=== PATIENT | male | born 2000 | race African-American/Black ===

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

== ENCOUNTER 2025-02-23 04:13 | Emergency (ER) | payer SELFPAY ==
[2025-02-23 04:16] VITALS: BP 172/89; PULSE 102; PULSE 95; RESP 22; TEMP 36.8; O2SAT 94; O2SAT 95; BMI 44.3
[2025-02-23 04:21] VITALS: O2SAT 94
[2025-02-23] MEDS: Albuterol 2.5 MG/3 ML VIAL.NEB. INHALATION (04:54)
[2025-02-23] MEDS: Albuterol Sulfate 8 gm Inhaler (60 puffs) 2 PUFF INHALATION (04:56)
[2025-02-23 04:57] VITALS: PULSE 100; RESP 18
--- OUTSIDE RECORDS SUMMARY | 2025-02-23 05:02 | XMS RPT_ITS | CCD ---
Author Organization [employer] [facility] Results Test Name Value Interpretation Reference Range Facil ity TSH with reflex T4FRon 12-15 TSH with reflex T4FR 1.927 uIU/mL Normal 0.350-5.500 [facility] Comment on above: Order Comment: With differential. Is this specimen being sent to an external lab?->No Performed By: #### T SHR #### [place] [address] Basic Metabolic Panelon 11-24 Calcium [Mass/Vol] 9.8 mg/dL Normal 7.6-11.0 [facility] Comment on above: Order Comment: With differential. Is this specimen being sent to an external lab?->No Performed By: #### B MP #### [address] [address] Chloride [Moles/Vol] 102 mmol/L Normal 96-108 [facility] Comment on above: Order Comment: With differential. Is this specimen being sent to an external lab?->No Performed By: #### B MP #### [address] [address] CO2 [Moles/Vol] 27.1 mmol/L Normal 22.0-29.0 [facility] Comment on above: Order Comment: With differential. Is this specimen being sent to an external lab?->No Performed By: #### B MP #### [address] [address] Creatinine [Mass/Vol] 0.91 mg/dL Normal 0.70-1.20 [facility] Comment on above: Order Comment: With differential. Is this specimen being sent to an external lab?->No Result Comment: Premature 0.3-1.0 mg/dL Performed By: #### B MP #### [address] [address] Glucose [Mass/Vol] 94 mg/dL Normal 70-99 [facility] Comment on above: Order Comment: With differential. Is this specimen being sent to an external lab?->No Result Comment: Criteria for Diagnosis of Diabetes(Effective 01/28/11): Fasting specimen (no caloric intake for at least 8 hours). <100 mg/dl Normal 100-125 mg/dl Increased Risk for Diabetes >125 mg/dl Diagnostic for Diabetes Random Glucose (any time of day without regard to last meal). >=200 mg/dl plus Classic Symptoms of Diabetes Performed By: #### B MP #### [address] [address] Potassium [Moles/Vol] 4.5 mmol/L Normal 3.3-5.1 [facility] Comment on above: Order Comment: With differential. Is this specimen being sent to an external lab?->No Performed By: #### B MP #### [address] [address] Sodium [Moles/Vol] 138 mmol/L Normal 133-145 [facility] Comment on above: Order Comment: With differential. Is this specimen being sent to an external lab?->No Performed By: #### B MP #### [address] [address] Urea nitrogen [Mass/Vol] 11 mg/dL Normal 4-19 [facility] Comment on above: Order Comment: With differential. Is this specimen being sent to an external lab?->No Performed By: #### B MP #### [address] [address] Complete Blood Counton 12-14 Differential Complete Automated Normal [facility] Comment on above: Order Comment: With differential. Is this specimen being sent to an external lab?->No Performed By: #### C BC #### [address] [address] Basophils/100 WBC (Bld) 0.70 % Normal 0.00-1.00 [facility] Comment on above: Order Comment: With differential. Is this specimen being sent to an external lab?->No Performed By: #### C BC #### [address] [address] Eosinophils/100 WBC (Bld) 6.60 % High 0.00-3.00 [facility] Comment on above: Order Comment: With differential. Is this specimen being sent to an external lab?->No Performed By: #### C BC #### [address] [address] Erythrocyte distribution width (RBC) [Ratio] 12.8 % Normal 0.0-14.4 [facility] Comment on above: Order Comment: With differential. Is this specimen being sent to an external lab?->No Performed By: #### C BC #### [address] [address] Hematocrit (Bld) [Volume fraction] 47.7 % High 36.0-47.0 [facility] Comment on above: Order Comment: With differential. Is this specimen being sent to an external lab?->No Performed By: #### C BC #### [address] [address] Hemoglobin (Bld) [Mass/Vol] 16.2 g/dL High 13.0-15.2 [facility] Comment on above: Order Comment: With differential. Is this specimen being sent to an external lab?->No Performed By: #### C BC #### [address] [address] Immature granulocytes/100 WBC (Bld) 0.10 % Normal [facility] Comment on above: Order Comment: With differential. Is this specimen being sent to an external lab?->No Result Comment: Regine ture Granulocyte Percent includes promyelocytes, myelocytes, and metamyelocytes. IG% > 1.0 indicates a left shift is present. With automated differentials, bands are included in the neutrophil count and not in the Immature Granulocyte Percent. Performed By: #### C BC #### [address] [address] Lymphocytes/100 WBC (Bld) 44.5 % Normal 25.0-45.0 [facility] Comment on above: Order Comment: With differential. Is this specimen being sent to an external lab?->No Performed By: #### C BC #### [address] [address] MCH (RBC) [Entitic mass] 29.2 pg Normal 25.0-35.0 [facility] Comment on above: Order Comment: With differential. Is this specimen being sent to an external lab?->No Performed By: #### C BC #### [address] [address] MCHC (RBC) [Mass/Vol] 34.0 % Normal 31.0-37.0 [facility] Comment on above: Order Comment: With differential. Is this specimen being sent to an external lab?->No Performed By: #### C BC #### [address] [address] MCV (RBC) [Entitic vol] 86.1 fL Normal 78.0-96.0 [facility] Comment on above: Order Comment: With differential. Is this specimen being sent to an external lab?->No Performed By: #### C BC #### [address] [address] Monocytes/100 WBC (Bld) 10.30 % High 3.00-6.00 [facility] Comment on above: Order Comment: With differential. Is this specimen being sent to an external lab?->No Performed By: #### C BC #### [address] [address] Neutrophils (Bld) [#/Vol] 2.5 10*3/uL Normal 1.8-7.4 [facility] Comment on above: Order Comment: With differential. Is this specimen being sent to an external lab?->No Performed By: #### C BC #### [address] [address] Neutrophils/100 WBC (Bld) 37.8 % Normal 34.0-64.0 [facility] Comment on above: Order Comment: With differential. Is this specimen being sent to an external lab?->No Performed By: #### C BC #### [address] [address] Nucleated RBC/100 WBC (Bld) [Ratio] 0.0 % Normal -1.0-0.0 [facility] Comment on above: Order Comment: With differential. Is this specimen being sent to an external lab?->No Performed By: #### C BC #### [address] [address] Platelet mean volume (Bld) [Entitic vol] 10.7 fL Normal [facility] Comment on above: Order Comment: With differential. Is this specimen being sent to an external lab?->No Result Comment: MPV is platelet range and age dependent Performed By: #### C BC #### [address] [address] Platelets (Bld) [#/Vol] 309 10*3/uL Normal 150-450 [facility] Comment on above: Order Comment: With differential. Is this specimen being sent to an external lab?->No Performed By: #### C BC #### [facility] [address] [place], [place] [id number] RBC (Bld) [#/Vol] 5.54 10E12/L High 4.50-5.10 [facility] Comment on above: Order Comment: With differential. Is this specimen being sent to an external lab?->No Performed By: #### C BC #### [facility] [address] [place] [address] WBC (Bld) [#/Vol] 6.7 10*3/uL Normal 4.5-13.0 [facility] Comment on above: Order Comment: With differential. Is this specimen being sent to an external lab?->No Performed By: #### C BC #### [address] [id number] Progress Noteon 12-15-2019 Director Meetings Authentication Interface Message Text Patient ID: Crystal Farah is a 19 y.o. male. His chief complaint(s) include: Palpitations Assessment 1. Heart palpitations Plan Crystal was seen today for palpitations. Diagnoses and all orders for this visit: Heart palpitations - POCT Blood Glucose - Basic Metabolic Panel (Clinic Collect) - Complete Blood Count with Diff (Clinic Collect) - Venipuncture - TSH with Reflex to T4, Free (Clinic Collect); Future - AMB Referral To Cardiology; Future - TSH with Reflex to T4, Free (Clinic Collect) Will obtain laboratory studies to make sure no electrolyte abnormalities or thyroid disorder present. Will also have patient evaluated by cardiology to rule out any heart disease. Patient scheduled to enter the [employer] in couple of months so need to make sure that he has no heart issues. Return if symptoms worsen or fail to improve. Subjective He is accompanied by his mother. Palpitations This problem is new. The duration has been 5 days. The onset has been acute (happened 2 days in the last 5 days). The course is improving (1st episode worse than 2nd episode. 1st episode lasted about 10 minutes, 2nd one was 5 minutes. 1st episode was without activity, 2nd episode occurred while cleaning out the garage). The patient's symptoms have included no fatigue, no fever, no decreased appetite, no decreased fluid intake, no difficulty sleeping, no congestion, no rhinorrhea, no sore throat, no cough, no shortness of breath, no wheezing, no bilateral ear pain, no difficulty breathing, no abdominal pain, no diarrhea and no vomiting. (Got lightheaded but not sweaty. No syncope. Patient denies skipping any meals prior to episodes.). The location of symptoms have included the chest. The symptoms are described as mild. Exacerbated by: nothing specific. There have been no previous interventions. Review of Systems Cardiovascular: Positive for palpitations. Objective Vital Signs 12/15/19 0851 BP: 130/73 Pulse: 79 Weight: (!) 104.8 kg There is no height or weight on file to calculate BMI. Physical Exam Constitutional: He appears well. He is active. No distress. HENT: Head: Atraumatic. Ears: Right Ear: Tympanic membrane normal. Left Ear: Tympanic membrane normal. Nose: No nasal discharge. Mouth/Throat: Mucous membranes are moist. No pharynx erythema. Eyes: Conjunctivae are normal. Pupils are equal, round, and reactive to light. Neck: Neck supple. Cardiovascular: Normal rate and regular rhythm. Heart murmur not heard. Pulmonary/Chest: Breath sounds normal. There is normal air entry. Abdominal: Soft. Bowel sounds are normal. There is no abdominal tenderness. There is no rebound and no guarding. Neurological: He is alert. Vitals reviewed: Blood pressure 130/73, pulse 79, weight (!) 104.8 kg. Last Result POCT Blood Glucose Collection Time: 12/15/19 10:07 AM Result Value Ref Range POCT Glucose, Blood 93 70 - 99 mg/dL Normal [facility] Progress Noteon 05-19-2019 Director Meetings Authentication Interface Message Text Patient ID: Crystal Farah is a 18 y.o. male. His chief complaint(s) include: 18 YEAR WELL CHILD Assessment 1. Encounter for routine child health examination without abnormal findings 2. Exercise counseling 3. Encounter for dietary counseling and surveillance 4. Need for vaccination 5. Asthma, exercise induced Plan Crystal was seen today for 18 year well child. Diagnoses and all orders for this visit: Encounter for routine child health examination without abnormal findings - Behavioral/Emotional Assessment w Score - PHQ-9 Exercise counseling Encounter for dietary counseling and surveillance Need for vaccination - Meningococcal ACWY (MENACTRA) Asthma, exercise induced Return in about 1 year (around 05/19/2020) for well check. Subjective HPI Comments: Doing well, has Albuterol that he uses occasionally for activity He is accompanied by his mother. 18 YEAR WELL CHILD Home: Crystal eats meals with family, has an adult to turn to for help and is permitted and able to make independent decisions. Education: He is in 12th grade and is doing well, is meeting expectations and is getting along with peers. Eating: Crystal eats regular meals including fruits and vegetables, eats breakfast and has a calcium source. Activities & Sports: He has a job. ([employer]) Drugs: He does not use tobacco, does not use drugs, does not use alcohol and does not vape. Safety: He has a violence free home and uses seat belt. Sex: Crystal is not sexually active. Suicidality: He has ways to cope with stress and displays self-confidence. He has no depression, has no anxiety, has no suicidal ideation and has no homicidal ideation. Output Urine and Stool Pattern: Urine and Stool Pattern: Normal stool pattern, normal urine pattern. Sleep Sleeping Difficulty: no difficulty sleeping Teen Anticipatory Guidance The following anticipatory guidance was reviewed during the visit: Safety: use safety helmet/gear with activities. Health: age appropriate dental care. Screenings Previous Vaccine Reactions: No. Life events information was reviewed-no referral needed Hearing Vision Concerns: Patient wears glasses or contact lenses. The caregiver has no concerns about the patient's hearing. The caregiver has no concerns about the patient's vision. Primary Care Review of Systems Objective Vital Signs 05/19/19 0756 BP: 124/87 Pulse: 63 Weight: (!) 110.5 kg Height: 185 cm Body mass index is 32.29 kg/m . Physical Exam Constitutional: He appears well. He is active. No distress. HENT: Head: Atraumatic. Right Ear: Tympanic membrane and external ear normal. Left Ear: Tympanic membrane and external ear normal. Nose: Nose normal. Mouth/Throat: Mucous membranes are moist. Dentition is normal. Oropharynx is clear. Eyes: Conjunctivae and EOM are normal. No strabismus. Pupils are equal, round, and reactive to light. Neck: Normal range of motion. Neck supple. Thyroid normal. No neck adenopathy. Cardiovascular: Normal rate, regular rhythm, S1 normal and S2 normal. Pulses are palpable. Heart murmur not heard. Pulmonary/Chest: Breath sounds normal. No respiratory distress. Exhibits no deformity. Abdominal: Soft. Bowel sounds are normal. He exhibits no distension and no mass. There is no hepatosplenomegaly. There is no tenderness. Genitourinary: Testes and penis normal. No inguinal hernia noted. Musculoskeletal: Normal range of motion. Back: He exhibits no scoliosis. Neurological: He is alert. He has normal strength. He exhibits normal muscle tone. Gait normal. Skin: No rash noted. There is no pallor. Skin is warm. Vitals reviewed: Blood pressure 124/87, pulse 63, height 185 cm, weight (!) 110.5 kg. Crystal Farah is a 18 y.o. male patient. Behavioral/Emotional Assessment w Score - PHQ-9 Performed by: Prerna Hurley APRN-CNP Authorized by: Prerna Hurley APRN-CNP PHQ-9 See PHQ9 Flowsheet See Scanned Document Electronically signed by: EVA Lovelace Normal [facility] Summary Purpose Family History No Family History Records Found Advance Directives No Advanced Directives Records Found Additional Source Comments (unrecognized sect ion and content) No Status Records Found INFORMATION SOURCE (unrecogn ized section and content) DATE CREATED AUTHOR 12/16/2019 [facility] FOR RECORDS PERTAINING TO PATIENTS WHO ARE OR HAVE BEEN ENROLLED IN A CHEMICAL DEPENDENCY/SUBSTANCEABUSE PROGRAM, SOME INFORMATION MAY BE OMITTED. This clinical summary was aggregated from multiple sources. Caution should be exercised in using it in the provision of clinical care. This summary normalizes information from multiple sources, and as a consequence, information in this document may materially change the coding, format and clinical context of patient data. In addition, data may be omitted in some cases. CLINICAL DECISIONS SHOULD BE BASED ON THE PRIMARY CLINICAL RECORDS. [employer] provides no warranty or guarantee of the accuracy or completeness of information in this document.
--- NOTE | 2025-02-23 05:11 | EX.ED.DYSGE1 ---
HPI History of Present Illness Chief Complaint: Asthma Informant: patient Narrative Narrative: Patient is a 24-year-old male with past medical history of asthma. He states over the last 1 to 2 weeks he has had nasal congestion and sinus drainage. He reports that he has noticed cough and wheezing associated with this. He states that today his symptoms seem more severe than they have over the past few weeks and therefore he presents for evaluation. He denies any fevers or chills or known sick contact. He states he is never needed intubated or admitted secondary to his asthma. [facility] Medical History (Updated 02/23/25 @ 07:[address] Olivier López, DO) Asthma Home Medications ?Medication ?Instructions ?Recorded ?Last Taken ?Type albuterol sulfate 90 mcg/actuation 1 - 2 puff inhalation Q4H PRN PRN 05/22/17 Unknown Rx aerosol inhaler (Ventolin HFA) Wheezing ##1 epinephrine 0.3 mg/0.3 mL 0.3 mg (0.3 mL) IM X1 ##2 03/28/19 Unknown Rx injection, auto-injector albuterol sulfate 90 mcg/actuation 1 - 2 puff inhalation Q4H PRN PRN 05/06/20 Unknown Rx aerosol inhaler Wheezing ##1 albuterol sulfate 90 mcg/actuation 1 - 2 puff inhalation Q4H PRN PRN 02/23/25 Unknown Rx aerosol inhaler (Ventolin HFA) Wheezing #1 device azelastine 137 mcg (0.1 %) nasal 2 spray intranasal BID #30 mL 02/23/25 Unknown Rx spray prednisone 20 mg tablet 40 mg (2 x 20 mg) PO DAILY 7 days 02/23/25 Unknown Rx #14 tabs Allergy/AdvReac Type Severity Reaction Status Date / Time shellfish derived Allergy Itching Verified 02/23/25 04:22 Social History Smoking Status: Never smoker [facility] ED Constitutional Constitutional ED: Denies chills or fever(s) ENT ENT ED: Reports rhinorrhea Cardiovascular Cardiovascular: Denies chest pain Respiratory/Chest Respiratory/Chest: Reports cough and dyspnea Gastrointestinal Gastrointestinal: Denies abdominal pain, diarrhea, nausea or vomiting Musculoskeletal Musculoskeletal: Denies myalgias Integumentary Denies rash Neurologic Neurologic: Denies headache(s) Hematologic/Lymphatic Hematologic/Lymphatic: Denies easy bleeding or easy bruising Allergic/Immunologic Allergic/Immunologic ED: Denies mouth swelling, tongue swelling or urticaria EXAM Physical Exam Const Vital Signs: 02/23/25 04:16 02/23/25 04:16 02/23/25 04:21 Temperature 98.3 F 98.3 F Temperature Source Oral Oral Pulse Rate 102 H 95 Respiratory Rate 22 H 22 H Respiratory Effort Normal Respiratory Pattern Blood Pressure 172/89 H 172/89 H Blood Pressure Mean 116 116 Pulse Ox 94 95 Oxygen Delivery Method Room Air Room Air Room Air 02/23/25 04:57 02/23/25 05:13 Temperature 97.8 F Temperature Source Pulse Rate 100 96 Respiratory Rate 18 22 H Respiratory Effort Respiratory Pattern Normal Blood Pressure 150/83 H Blood Pressure Mean 105 Pulse Ox 98 Oxygen Delivery Method Positive well nourished and well developed General Appearance ED: well developed; Negative for pallor HEENT HEENT Narrative: Nasal mucosa is hyperemic and boggy There is cobblestoning noted in posterior pharynx consistent with sinus drainage; no airway edema or compromise No secondary findings to suggest infection Eyes PERRL and EOMs intact bilaterally Neck supple and no JVD Resp Resp Narrative: Patient has diminished breath sounds with slight tachypnea. There is diffuse expiratory wheezing noted No nasal flaring or retractions or accessory muscle use. Cardio regular rate and regular rhythm Extremity normal to inspection Extremity Narrative: No asymmetric edema no pitting edema negative Homans' sign bilaterally Neuro oriented x3, CN's II-XII intact bilaterally and no sensory deficits noted Sensorium / Orientation: alert Motor Exam: strength 5/5 throughout Psych mental status grossly normal Skin no rashes or lesions noted and no wounds General Skin Exam: Negative for jaundice or pallor MDM MDM MDM Narrative Medical decision making narrative: Patient arrived to the ER in slight respiratory distress with tachypnea and diminished breath sounds but otherwise was satting in the mid 90s on room air. His history and exam is consistent with allergy induced asthma exacerbation. Without fevers or chills without asymmetric breath sounds I have low concern for pneumonia or pneumothorax or pleural effusion and therefore feel no need for chest x-ray. Patient was given steroids as well as albuterol and DuoNeb. On reevaluation his breath sounds have improved and his work of breathing has improved as well. Pulse ox remains in the high 90s on room air. Therefore without signs of respiratory distress or hypoxia there is no need for further intervention or observation in the ER and he is otherwise safe for discharge History & Record Review Discussion w/independent historian: Patient Discharge Plan Triage Chief Complaint: Asthma ED Provider: Olivier López Dx/Rx/DC Orders Clinical Impression: Asthma exacerbation, Hypertension Instructions: Asthma Action Plan, Acute Severe Asthma Prescriptions: New prednisone 20 mg tablet 40 mg PO DAILY 7 Days Qty: 14 0RF azelastine 137 mcg (0.1 %) spray,non-aerosol 2 spray intranasal BID Qty: 30 1RF Rx Instructions: administer into each nostril albuterol sulfate [Ventolin HFA] 90 mcg/actuation HFA aerosol inhaler 1 - 2 puff inhalation Q4H PRN PRN (Reason: Wheezing) Qty: 1 2RF No Action albuterol sulfate [Ventolin HFA] 1 INHALER inhaler 1 - 2 puff inhalation Q4H PRN PRN (Reason: Wheezing) Qty: 1 1RF epinephrine 0.3 MG syringe 0.3 mg IM X1 Qty: 2 0RF Rx Instructions: one time as needed for allergic reaction albuterol sulfate 1 INHALER inhaler 1 - 2 puff inhalation Q4H PRN PRN (Reason: Wheezing) Qty: 1 0RF Stand Alone Forms: ED Work / School Excuse Primary Care Provider: Agusto Muhammad Referrals: Agusto Muhammad MD [Primary Care Provider] - Activity Restrictions/Additional Instructions: Please use your inhaler and nasal spray as directed to help reduce symptoms and control your shortness of breath. If you have any further concerns please return to the ER for repeat evaluation Print Language: Luxembourger Disposition Disposition: Home, Self Care Discharge Date/Time: 02/23/25 05:21
[2025-02-23 05:13] VITALS: BP 150/83; PULSE 96; RESP 22; TEMP 36.6; O2SAT 98
== END 2025-02-23 05:21 | disposition home or self-care (01) ==
PROVIDERS: Emergency Provider Emergency Medicine; PCP Family Medicine; Visit Provider Emergency Medicine
DX: J45.901 Unspecified asthma with (acute) exacerbation (principal); I10 Essential (primary) hypertension
CPT/HCPCS: 94640; 99284